=== PATIENT | female | born 1950 | race Caucasian/White ===

== ENCOUNTER 2019-04-19 06:22 | Observation (INO) | payer MEDICARE ==
--- NOTE | 2019-04-16 09:16 | Diagnostic Imaging Report ---
EXAMINATION: CHEST 2 VIEWS INDICATION: Pre-operative COMPARISON: None FINDINGS: LINES/TUBES:None LUNGS:The lungs are well-inflated. No focal consolidation or pulmonary edema. PLEURA:No pleural effusion or pneumothorax. MEDIASTINUM:The cardiomediastinal silhouette appears normal in size and shape. BONES/SOFT TISSUES:No acute osseous injury. ABDOMEN:No free air under the diaphragm. IMPRESSION: No focal pneumonia or pulmonary edema. Signed by: Edwar Tavarez MD on 04/16/2019 9:12 AM
[~2019-04-19] VITALS: Ht 167.6 cm; Wt 70.3 kg
[~2019-04-19 06:22] MED LIST: BACITRACIN 50,000 UNIT VIAL ONE; MOBIC15 MG PO; SODIUM CHLORIDE 0.9% 500ML 500 ML ONE; TRANEXAMIC ACID 1,000 MG/10 ML ML ONE; ULTRAM50 MG PO; VANCOMYCIN HCL 1,000 MG ONE
--- OUTSIDE RECORDS SUMMARY | 2019-04-19 06:31 | XMS REPORT | Summary of Care ---
Author Author Abdon Mclaughlin, Miya Organization Unknown Address Unknown Phone Unavailable Care Team Providers Care Roguer Name Role Phone OMAYRA Holt, DAMIR Unavailable Unavailable OMAYRA COLON WI, DAMIR LOAIZA Unavailable Unavailable Unavailable Unavailable Functional Status Name Dates Details Functional status health issues are not documented Status: Name Dates Details Cognitive status health issues are not documented Status: Problems Name Dates Details Acute pain of right knee (719.46, M25.561) Status: Active Primary localized osteoarthritis of right knee (715.16, M17.11) Status: Active Medications Name Dates Details Meloxicam TABS Active Allergies and Adverse Reactions Name Dates Details Penicillins (Allergy) Status: Active Past Medical History Name Dates Details History of Pneumonia (486, J18.9) Status: Resolved History of Psoriasis (696.1, L40.9) Status: Resolved Procedures Procedure Dates Details History of Hysterectomy Completed Immunization Name Dates Details Immunizations not documented Social History Name Dates Details - Status: Name Dates Details Current every day smoker Vital Signs Date Test Result Details No Known Vitals to report Results Date Description Value Details Results not documented Plan of Care Name Dates Details Planned Observations Planned Goals not documented Planned Encounters Appointment; DAMIR CUTLER M.D. On: 13-Jan-2019 10:20 Instructions Name Dates Details Instructions not documented Encounters Appointment; DAMIR CUTLER M.D. Encounter Diagnosis: Problem not documented On: 24-Apr-2018 10:10 Appointment; DAMIR CUTLER M.D. Encounter Diagnosis: Problem not documented On: 22-Jun-2018 10:35 Appointment; DAMIR CUTLER M.D. Encounter Diagnosis: Problem not documented On: 31-Jul-2018 9:00 Appointment; DAMIR CUTLER M.D. Encounter Diagnosis: Problem not documented On: 11-Sep-2018 9:00 Appointment; DAMIR CUTLER M.D. Encounter Diagnosis: Problem not documented On: 11-Nov-2018 8:40 Appointment; DAMIR CUTLER M.D. Encounter Diagnosis: Problem not documented On: 13-Jan-2019 10:20
--- OUTSIDE RECORDS SUMMARY | 2019-04-19 06:31 | XMS REPORT ---
Author Author [facility] Address Unknown Phone Unavailable Care Team Providers Care Can Reforming Machine Operator Name Role Phone ARI ALONZO Unavailable Unavailable Problems This patient has no known problems. Allergies, Adverse Reactions, Alerts This patient has no known allergies or adverse reactions. Medications This patient has no known medications. Results Test Description Test Time Test Comments Text Results Atomic Results Result Comments CHEST 2 VIEWS 2019-04-16 09:12:00 [place] [id number] [place] [id number] Patient Name: ANGELA BORREGO MR #: [id number] : 1950 Age/Sex: 69/F Req #: [id number] [facility] Physician: Ordered by: ARI ALONZO MD Report #: [id number] Location: OR Room/Bed: Procedure: [id number] DX/CHEST 2 VIEWS Exam Date: 04/16/19 Exam Time: 0850 REPORT STATUS: Signed EXAMINATION: CHEST 2 VIEWS INDICATION: Pre-operative COMPARISON: None FINDINGS: LINES/TUBES:None LUNGS:The lungs are well-inflated. No focal consolidation or pulmonary edema. PLEURA:No pleural effusion or pneumothorax. MEDIASTINUM:The cardiomediastinal silhouette appears normal in size and shape. BONES/SOFT TISSUES:No acute osseous injury. ABDOMEN:No free air under the diaphragm. IMPRESSION: No focal pneumonia or pulmonary edema. Signed by: Rajat Kemp MD on 04/16/2019 9:12 AM Dictated By: RAJAT KEMP MD 1 Transcribed By: ELLIOTT Morel on 04/16/19911 COPY TO: ARI ALONZO MD
[2019-04-19] MEDS ORDERED: DEXAMETHASONE SOD PHOS 10 MG/1 ML VIAL ONE (07:06)
[2019-04-19] MEDS ORDERED: CELECOXIB 200 MG CAP ONE (07:06)
[2019-04-19] MEDS ORDERED: VANCOMYCIN 1GM/NS 250 ML 250 ML ONE (07:07)
[2019-04-19] MEDS ORDERED: GABAPENTIN 300 MG CAP ONE (07:07)
[2019-04-19] MEDS ORDERED: ROPIVACAINE 246.25 MG, EPINEPHRINE HCL 1:1000 1ML 0.5 MG, CLONIDINE HCL 0.08 MG, KETORO... INJ ONE ×5 (07:30)
[2019-04-19] MEDS ORDERED: MIDAZOLAM HCL 2 MG/2 ML VIAL ONE (09:00)
[2019-04-19] MEDS ORDERED: FENTANYL CITRATE/PF 100MCG/2 ML INJ ONE ×3 (09:00→19:29)
--- NOTE | 2019-04-19 11:20 | NUR ---
Received patient from PACU. Right knee s/p surgical site with sandy wrap, no bleeding noted. Denies pain at this time. Patient is able to wiggle toes to right foot. Bilateral pedal pulses present. Call light in reach. Family members at bedside.
[2019-04-19] MEDS ORDERED: ACETAMINOPHEN 650 MG SUPP PR PRN (11:45)
[2019-04-19] MEDS ORDERED: HYDROCODONE/APAP 5MG-325MG TAB PO PRN (11:45)
[2019-04-19] MEDS ORDERED: ZOLPIDEM TARTRATE 5 MG TAB PO PRN (11:45)
[2019-04-19] MEDS ORDERED: DIPHENHYDRAMINE HCL INJ 50 MG/ML VIAL IM/IV PRN (11:45)
[2019-04-19] MEDS ORDERED: ONDANSETRON HCL INJ 2MG/ML 2ML 2 MG/ML VIAL IV PRN (11:45)
[2019-04-19] MEDS ORDERED: DOCUSATE SODIUM 100 MG CAP PO PRN (11:45)
[2019-04-19] MEDS ORDERED: PROMETHAZINE HCL (IM) 25 MG/ML VIAL INJ PRN (11:45)
[2019-04-19] MEDS ORDERED: HYDROCODONE/APAP 7.5MG-325MG 1 EA TAB PO PRN (11:45)
[2019-04-19] MEDS ORDERED: HYDROMORPHONE 1MG/1ML INJ ONE (11:59)
[2019-04-19 12:00] VITALS: BP 121/70
--- NOTE | 2019-04-19 13:11 | Diagnostic Imaging Report ---
EXAMINATION: KNEE RIGHT 1-2 VIEWS INDICATION: Postoperative COMPARISON: None FINDINGS: Portable AP and lateral images of the right knee demonstrate immediate postoperative findings of right total knee replacement. Alignment appears anatomic. No unexpected fracture. Postoperative subcutaneous soft tissue emphysema. Surgical skin ismael in place. Small joint effusion. IMPRESSION: Anatomic alignment status post right total knee replacement. Signed by: Edwar Tavarez MD on 04/19/2019 1:07 PM
[2019-04-19 13:19] VITALS: BP 121/70
[2019-04-19] MEDS: SODIUM CHLORIDE 0.9% 1000ML 1,000 ML IV SCH ×2 (13:46→21:31)
[2019-04-19] MEDS: ACETAMINOPHEN 1000 MG/100 ML IV SCH ×3 (13:46→23:51)
[2019-04-19 14:10] VITALS: BP 121/70
--- NOTE | 2019-04-19 15:09 | NUR ---
DR CHING OFFICE PREARRANGED FOLLOWING DISCHARGE PLAN OF: HOME HEALTH WITH Home Care Providers [phone] CONFIRMED WITH: Clarissa Sheikh - [employer] 3 IN ONE COMMODE, CPM, AND ROLLING WALKER WITH WHEELS PROVIDED BY [employer] [phone]. Per Edith, DME to be delivered by [facility] between 8 - 10 AM 04/20.
[2019-04-19] MEDS: KETOROLAC TROMETHAMINE 30 MG/ML VIAL IV PRN (15:19)
[2019-04-19] MEDS: CELECOXIB 200 MG CAP PO SCH (16:41)
[2019-04-19] MEDS: ASPIRIN 325 MG TAB PO SCH (16:41)
[2019-04-19 16:46] VITALS: BP 101/54
[2019-04-19] MEDS ORDERED: CELECOXIB 100 MG CAP PO SCH (17:00)
--- NOTE | 2019-04-19 18:48 | Operative Report ---
DATE OF PROCEDURE: 04/19/2019 SURGEON: Delvin Zhang MD LATHE SETUP OPERATOR: Wiley Paige, certified PA. PREOPERATIVE DIAGNOSIS: Osteoarthritis, right knee. POSTOPERATIVE DIAGNOSIS: Osteoarthritis, right knee. PROCEDURE: Right total knee arthroplasty. INDICATIONS: The patient is a 69-year-old lady, who has end-stage arthritis of her right knee. She has failed conservative management and would like to proceed with a right total knee replacement. The risks and benefits of the procedure have been explained. She states she understands and wishes to proceed. PROCEDURE IN DETAIL: The patient was brought to the operating room and placed under general anesthetic. She received prophylactic antibiotics, a regional block, and tranexamic acid in the holding area. Her right lower extremity was prepped and draped in a sterile manner. A preoperative time-out was performed. The extremity was exsanguinated and a proximal tourniquet was inflated to 300 mmHg. An anterior approach with a medial parapatellar arthrotomy was performed. Clear synovial fluid was removed from the joint. Soft tissue releases were performed to bring the knee up into flexion with the patella everted. Marginal osteophytes and meniscal remnants were removed. The cruciate ligaments were sacrificed. A Bates [employer] Nephew Legion Knee System with ultracongruent tibial inserts were used throughout the case. An extramedullary cutting guide was used to resect the proximal tibia. The tibial base plate was a size #4. The central fin punch was impacted and attention was directed towards the distal femur. An intramedullary cutting guide was used to resect the distal femur in 6 degrees of valgus and rotation, referencing off a combination of landmarks including Whitesides line, the epicondylar axis, and the posterior condyles. The femoral component was a size #5. The anterior and posterior cuts were made. Trial reductions were performed. A 9 mm ultracongruent tibial insert provided appropriate soft tissue balancing in full extension and 90 degrees of flexion. The patella was resurfaced with a 29 mm x 9 mm patellar button. The thickness was checked before and after, and was right around 22 mm. Patellar tracking was noted to be concentric. The trial implants were then all removed. A 100 mL premixed pericapsular JODIE injection was injected into the surrounding soft tissue. The knee was thoroughly irrigated with a shower tip pulsatile lavage. All bone cuts had been irrigated with a spray mixture of diluted vancomycin and polymyxin spray. The components were then cemented into place using a single mix of high viscosity Biomet cement preloaded with antibiotics. Care was taken to remove all extravasated cement. The wound was further irrigated while the cement cured. The arthrotomy was then carefully closed with interrupted #1 Ethibond. A 500 mg of vancomycin powder was sprinkled into the joint prior to closure. The knee was put through flexion and extension to ensure a secure closure. The skin was then closed with subcuticular Vicryl and ismael. A sterile Aquacel bandage was applied. The patient was extubated and transported to the recovery room in stable condition. Blood loss was minimal. All needle and sponge counts were correct. Delvin Zhang MD DR/GILMAR /[id number]
[2019-04-19] MEDS ORDERED: DEXAMETHASONE SOD PHOS INJ 4 MG/ML VIAL ONE (18:52)
[2019-04-19] MEDS ORDERED: ONDANSETRON HCL INJ 2MG/ML 2ML 2 MG/ML VIAL ONE (18:52)
[2019-04-19] MEDS ORDERED: LIDOCAINE HCL 2% LOCAL INJ 5 ML SDV VIAL INJ ONE (18:52)
[2019-04-19] MEDS ORDERED: PROPOFOL IV EMULSION 10 MG/ML 20 ML VIAL ONE (18:52)
[2019-04-19] MEDS ORDERED: SEVOFLURANE INHAL SOLN 250 ML PEN BTL ONE (18:52)
[2019-04-19] MEDS ORDERED: LIDOCAINE 2%/ EPINEPHRINE 20ML MDV ONE (19:00)
[2019-04-19] MEDS ORDERED: ROPIVACAINE 0.5% 5 MG/ML 30 ML SDV ONE (19:00)
--- NOTE | 2019-04-19 19:10 | NUR ---
Report given to night nurse. Respiration even and unlabored without SOB. Call light in reach.
[2019-04-19] MEDS: VANCOMYCIN 1GM/NS 250 ML 250 ML IV SCH (19:33)
[2019-04-19 20:00] VITALS: BP 89/55
[2019-04-19 21:09] VITALS: BP 89/55
--- NOTE | 2019-04-19 21:35 | NUR ---
BP improved improving 95/53 mmhg. Patient is alert. No c/o dizziness or lightheadedness.
[2019-04-20] VITALS: BP 92/50
[2019-04-20 04:00] VITALS: BP 95/54
[2019-04-20] MEDS: SODIUM CHLORIDE 0.9% 1000ML 1,000 ML IV SCH ×2 (05:13→08:17)
[2019-04-20] MEDS: ACETAMINOPHEN 1000 MG/100 ML IV SCH (05:13)
[2019-04-20 06:18] LABS: HEMATOCRIT 35.4 % (34.2-44.1)
[2019-04-20] MEDS: VANCOMYCIN 1GM/NS 250 ML 250 ML IV SCH (06:41)
--- NOTE | 2019-04-20 07:30 | NUR ---
The pt. is currently utilizing the cpm and reports pain. The off-going nurse reports her bp was too low for injection and the reports that the oral pain med was insufficient. Her bp is within an acceptable range and she was given an injection.
[2019-04-20] MEDS: KETOROLAC TROMETHAMINE 30 MG/ML VIAL IV PRN (08:00)
[2019-04-20 08:16] VITALS: BP 106/55
[2019-04-20 08:37] VITALS: BP 106/55
[2019-04-20] MEDS: CELECOXIB 200 MG CAP PO SCH (08:54)
[2019-04-20] MEDS: ASPIRIN 325 MG TAB PO SCH (08:54)
--- NOTE | 2019-04-20 10:32 | NUR ---
DME has been delivered, home health set up. Info given to patient. Graf given to patient, explained, patient signed, placed in chart, copy to pt
--- NOTE | 2019-04-20 10:33 | Consultation ---
DATE OF CONSULTATION: REASON FOR CONSULTATION: Postop medical management. HISTORY OF PRESENT ILLNESS: The patient is a 69-year-old lady, status post right knee arthroplasty for end-stage osteoarthritis. She is doing well postoperatively with some lower blood pressures, but she states that she tends to run low at home. REVIEW OF SYSTEMS: She denies any fever, chills, nausea, vomiting, headache, shortness of breath, dizziness, or chest pains . PAST MEDICAL HISTORY: Significant for osteoarthritis. PAST SURGICAL HISTORY: Hysterectomy. SOCIAL HISTORY: She is retired, . Smokes less than one-pack per day. FAMILY HISTORY: Noncontributory. MEDICATIONS: Meloxicam and tramadol. ALLERGIES: PENICILLIN. PHYSICAL EXAMINATION: VITAL SIGNS: Temperature is 97.7, pulse 59, blood pressure 92/50, and saturations 94%. GENERAL: No apparent distress. NECK: Supple. CARDIOVASCULAR: Regular rate and rhythm. LUNGS: Clear to auscultation bilaterally. ABDOMEN: Good bowel sounds. Soft and nontender. EXTREMITIES: No clubbing or cyanosis. NEUROLOGIC: Nonfocal. ASSESSMENT AND PLAN: 1. Right knee pain. Continue with postoperative care and physical therapy. 2. Anemia. Check a CBC. 3. Hypotension. Continue to monitor since the patient is asymptomatic. Please see hospital chart for full details. MD MODE Vasquez/GILMAR /[id number]
[2019-04-20] MEDS ORDERED: ACETAMINOPHEN 1000 MG/100 ML IV PRN (11:45)
[2019-04-20 11:52] VITALS: BP 105/55
--- NOTE | 2019-04-20 12:35 | NUR ---
The pt. was transported to the loading area for dismissal home. She was assisted t private car and sent home in the care of family.
== END 2019-04-20 13:02 | disposition home health service (06) ==
LOC: OR 06:22 → PACU V 11:33 → MED/SURG 13:02
PROVIDERS: ADMIT Specialist; ATTEND Specialist
DX: M17.11 Unilateral primary osteoarthritis, right knee (principal); D64.9 Anemia, unspecified; I95.9 Hypotension, unspecified; F17.210 Nicotine dependence, cigarettes, uncomplicated; Z88.0 Allergy status to penicillin; Z01.812 Encounter for preprocedural laboratory examination; Z01.811 Encounter for preprocedural respiratory examination
CPT/HCPCS: 27447; 36415; 71046; 73560; 85014; 85018; 86850; 86900; 86920; 97110; 97116 ×2; 97139; 97161; C1713 ×3; G0378 ×2; J0131 ×2; J0171; J1100 ×2; J1170; J1885 ×2; J2001 ×2; J2250; J2405; J2704; J2795; J3010; J3370 ×3; J7030 ×2; J7040